=== PATIENT | male | born 1965 | race Caucasian/White ===

== ENCOUNTER 2022-09-27 20:57 | Emergency (ER) | payer SELFPAY ==
[~2022-09-27] VITALS: Ht 172.7 cm; Wt 91.0 kg
[2022-09-27 21:17] VITALS: O2SAT 100
[2022-09-27] MEDS ORDERED: TETANUS, DIPHTHERIA, PERTUSSIS VAC/PF 0.5ML (>10YR OLD) IM ONE (23:00)
[2022-09-27] MEDS ORDERED: KETOROLAC 15MG/ML VIAL IM ONE (23:00)
[2022-09-28] MEDS ORDERED: ACET-2708 MT (02:02)
[2022-09-28 02:30] VITALS: BP 146/68; PULSE 68; RESP 18; TEMP 98.1
== END 2022-09-28 02:53 | disposition home or self-care (01) ==
LOC: ER 20:57
DX: S61.412A Laceration without foreign body of left hand, initial encounter (principal); X58.XXXA Exposure to other specified factors, initial encounter; Y93.89 Activity, other specified; Y92.89 Other specified places as the place of occurrence of the external cause; Y99.8 Other external cause status
CPT/HCPCS: 73130; 12002; 90471; 96372; 99284; 90715; Z7610 ×4; J1885